=== PATIENT | female | born 1995 | race Caucasian/White ===

== ENCOUNTER 2020-11-06 17:30 | Outpatient (REF) | payer OTHER, SELFPAY ==
[2020-11-06 20:58] LABS: C Diff PCR Negative (Negative)
[2020-11-07 20:01] LABS: Campylobacter PCR Negative (Negative); Salmonella PCR Negative (Negative); Shiga Toxin PCR Negative (Negative); Shigella/Enteroinvasive Ecoli Negative (Negative)
== END 2020-11-06 17:31 | disposition home or self-care (01) ==
LOC: NCHCN 17:30
PROVIDERS: PCP Nurse Practitioner Primary Care; Visit Provider Family Medicine
DX: R19.7 Diarrhea, unspecified (principal)
CPT/HCPCS: 87329; 87493; 87505

== ENCOUNTER 2021-07-01 09:14 | Outpatient (CLI) | payer OTHER, SELFPAY ==
[2021-07-02 11:30] LABS: COVID-19 RT-PCR UVMMC Result Negative (Negative)
== END 2021-07-01 09:15 | disposition home or self-care (01) ==
PROVIDERS: PCP Nurse Practitioner Primary Care; Visit Provider Obstetrics & Gynecology
DX: Z20.822 Contact with and (suspected) exposure to COVID-19 (principal)
CPT/HCPCS: U0003

== ENCOUNTER 2021-07-24 01:36 | Outpatient (CLI) | payer OTHER, SELFPAY ==
[2021-07-24 14:37] LABS: Abs Immature Grans 0.03 10^3/uL (0.0-0.06); Absolute Basophil Count 0.03 10^3/uL (0.0-0.2); Absolute Eosinophil Count 0.06 10^3/uL (0.0-0.7); Absolute Lymphocyte Count 1.65 10^3/uL (1.2-3.4); Absolute Monocyte Count 0.51 10^3/uL (0.1-0.8); Absolute Neutrophil Count 7.02 10^3/uL (1.2-6.7); Basophils % 0.3; Eosinophils % 0.6; HCT 36.2 % (36.0-46.0); HGB 12.2 g/dL (11.2-15.7); Immature Grans % 0.3; Lymphocytes % 17.7; MCH 30.8 pg (27.0-33.0); MCHC 33.7 % (32.0-36.0); MCV 91.4 fL (80-95); MPV 8.7 fL (8.0-11.0); Monocytes % 5.5; Neutrophils % 75.6; Nucleated RBC 0 %; Platelet Count 295 10^3/uL (130-400); RBC 3.96 10^6/uL (3.93-5.22); RDW 11.7 % (11.7-14.6); RDW-SD 39.5 fL
[2021-07-24 15:49] LABS: *AMPHETAMINES SCREEN URINE Negative (Negative); *BARBITURATES SCREEN URINE Negative (Negative); *BENZODIAZEPINES SCREEN URINE Negative (Negative); Cannabinoids THC Negative (Negative); Cocaine Screen,Urine Negative (Negative); METHADONE URINE SCREEN Negative (Negative); OPIATES URINE SCREEN Negative (Negative)
[2021-07-24 16:02] LABS: Tricyclic Antidepressants Negative (Negative)
[2021-07-25 10:16] LABS: Hepatitis B Surface Ag Negative (Negative)
[2021-07-25 10:23] LABS: Rubella IgG Ab (UVM) Positive (See Note)
[2021-07-25 11:27] LABS: Varicella IgG Antibody Equivocal (See Note)
[2021-07-25 11:33] LABS: HIV-1/2 Ag & Ab Screen Negative (Negative)
[2021-07-25 12:04] LABS: Hepatitis C Ab w Rflx HCV PCR Negative (Negative)
[2021-07-25 20:29] LABS: Syphilis IgG w/Reflex Nonreactive (Nonreactive)
[2021-07-30 08:46] LABS: Buprenorphine Negative ng/mL (Cutoff: 5.0); Norbuprenorphine Negative ng/mL (Cutoff: 2.5)
[2021-08-13 08:54] LABS: Rabies Antibody Endpoint 0.6 IU/mL
== END 2021-07-24 01:37 | disposition home or self-care (01) ==
LOC: LBO 01:37
PROVIDERS: PCP Nurse Practitioner Primary Care; Visit Provider Advanced Practice Midwife
DX: Z34.91 Encounter for supervision of normal pregnancy, unspecified, first trimester (principal); Z20.3 Contact with and (suspected) exposure to rabies; Z32.01 Encounter for pregnancy test, result positive
CPT/HCPCS: 36415; 80307; 86317; 86787; 86803; 87340; 87389; 85025; 86762; 86780; 87086

== ENCOUNTER 2021-07-24 16:01 | Outpatient (REF) | payer OTHER, SELFPAY ==
--- NOTE | 2021-07-24 13:50 | PAPFT_PTH ---
PATIENT: Rizwana Sage LOC: [facility] U#:[id number] AGE/SX: 26/F ROOM: RE07/24/[address]: Jennifer Bar CNM : 1995 BED: DIS: 07/24/2021 SPEC #: [id number] RECD: 07/24/21 18:26 STATUS: CECILY REGinger #: [id number] ELOY: 07/24/21 13:[address]: Jennifer Bar DEPT: [facility] Cytology RECD BY: Maria L Evangelista ENTERED: 07/24/21 18:26 SP TYPE: PAPFT OTHR DR: MINOR AndradeP Tissues: 1 - CX/ENDOCX FOR PAP SMEARS Procedures: PAP THIN PREP/UVM Screening Comments: [id number]
[2021-07-26 14:51] LABS: Chlamydia Result Negative (Negative); GC Result Negative (Negative)
== END 2021-07-24 16:02 | disposition home or self-care (01) ==
LOC: LBN 16:01
PROVIDERS: PCP Nurse Practitioner Primary Care; Visit Provider Advanced Practice Midwife
DX: Z12.4 Encounter for screening for malignant neoplasm of cervix (principal); Z11.3 Encounter for screening for infections with a predominantly sexual mode of transmission
CPT/HCPCS: 87491; 87591; 88142

== ENCOUNTER 2021-09-27 02:27 | Outpatient (CLI) | payer OTHER, SELFPAY ==
[2021-09-27 11:41] LABS: HCT 33.6 % (36.0-46.0); HGB 11.1 g/dL (11.2-15.7); MCH 31.8 pg (27.0-33.0); MCV 96.3 fL (80-95); MPV 8.4 fL (8.0-11.0); Platelet Count 289 10^3/uL (130-400); RBC 3.49 10^6/uL (3.93-5.22); RDW 12.7 % (11.7-14.6); RDW-SD 44.5 fL; WBC 8.25 10^3/uL (4.4-10.8)
== END 2021-09-27 02:28 | disposition home or self-care (01) ==
LOC: LBO 02:27
PROVIDERS: PCP Nurse Practitioner Primary Care; Visit Provider Obstetrics & Gynecology Gynecology
DX: R23.8 Other skin changes (principal)
CPT/HCPCS: 36415; 85027

== ENCOUNTER 2021-10-10 19:17 | Outpatient (REF) | payer OTHER, SELFPAY | END 2021-10-10 19:18 | disposition home or self-care (01) | LOC: LBN 19:17 | PROVIDERS: PCP Nurse Practitioner Primary Care; Visit Provider Advanced Practice Midwife | DX: R30.0 Dysuria (principal) | CPT/HCPCS: 87086 ==

== ENCOUNTER 2021-11-22 01:46 | Outpatient (CLI) | payer OTHER, SELFPAY ==
[2021-11-22 11:03] LABS: Abs Immature Grans 0.06 10^3/uL (0.0-0.06); Absolute Basophil Count 0.02 10^3/uL (0.0-0.2); Absolute Eosinophil Count 0.07 10^3/uL (0.0-0.7); Absolute Lymphocyte Count 1.28 10^3/uL (1.2-3.4); Absolute Monocyte Count 0.66 10^3/uL (0.1-0.8); Absolute Neutrophil Count 6.73 10^3/uL (1.2-6.7); Basophils % 0.2; Eosinophils % 0.8; HCT 34.1 % (36.0-46.0); HGB 11.3 g/dL (11.2-15.7); Immature Grans % 0.7; Lymphocytes % 14.5; MCH 31.8 pg (27.0-33.0); MCHC 33.1 % (32.0-36.0); MCV 96 fL (80-95); MPV 8.5 fL (8.0-11.0); Monocytes % 7.5; Neutrophils % 76.3; Platelet Count 264 10^3/uL (130-400); RBC 3.55 10^6/uL (3.93-5.22); RDW 12.9 % (11.7-14.6); RDW-SD 45.1 fL; WBC 8.82 10^3/uL (4.4-10.8)
[2021-11-22 11:44] LABS: Glucose,1 Hr (Glucola) 91 mg/dL (80-140)
== END 2021-11-22 01:47 | disposition home or self-care (01) ==
LOC: LBO 01:46
PROVIDERS: PCP Nurse Practitioner Primary Care; Visit Provider Obstetrics & Gynecology
DX: Z34.92 Encounter for supervision of normal pregnancy, unspecified, second trimester (principal); Z3A.27 27 weeks gestation of pregnancy
CPT/HCPCS: 36415; 82950; 86850; 86900; 86901; 85025

== ENCOUNTER 2022-01-28 13:16 | Outpatient (REF) | payer OTHER, SELFPAY ==
[2022-01-28 14:00] LABS: *AMPHETAMINES SCREEN URINE Negative (Negative); *BARBITURATES SCREEN URINE Negative (Negative); *BENZODIAZEPINES SCREEN URINE Negative (Negative); Cannabinoids THC Negative (Negative); Cocaine Screen,Urine Negative (Negative); METHADONE URINE SCREEN Negative (Negative); OPIATES URINE SCREEN Negative (Negative); Tricyclic Antidepressants Negative (Negative)
[2022-02-01 10:56] LABS: Buprenorphine Negative ng/mL (Cutoff: 5.0); Norbuprenorphine Negative ng/mL (Cutoff: 2.5)
== END 2022-01-28 13:17 | disposition home or self-care (01) ==
LOC: LBN 13:16
PROVIDERS: PCP Nurse Practitioner Primary Care; Visit Provider Obstetrics & Gynecology
DX: Z34.93 Encounter for supervision of normal pregnancy, unspecified, third trimester (principal); Z36.85 Encounter for antenatal screening for Streptococcus B; Z3A.37 37 weeks gestation of pregnancy
CPT/HCPCS: 80307; 87081

== ENCOUNTER 2022-02-20 12:28 | Outpatient (CLI) | payer OTHER, SELFPAY ==
[2022-02-20 13:09] VITALS: BP 109/70; PULSE 86; TEMP 36.9
[2022-02-20 13:28] VITALS: BP 109/70; PULSE 86; TEMP 36.9
--- NOTE | 2022-02-20 15:38 | W.OBNST ---
Date of service: 02/20/22 Time of Service: 15:38 NST Evaluation Reason for NST Reasons for Nonstress Test: POSTDATES Gestational Age Gestational Age in Weeks and Days: 40 Weeks and 2Days Test and Monitor Explained Test/Monitor Explained: Test Explained, Monitor Explained and Patient Verbalized Understanding Vital Signs Blood Pressure: 109/70 Pulse: 86 Temperature: 98.4 F NST Information Date on Monitor: 02/20/22 Time on Monitor: 12:50 Date off Monitor: 02/20/22 Time off Monitor: 13:43 Total Time on Monitor: 53 NST Interventions: PO Hydration NST Evaluation Patient States Movement: Present FHR Baseline: 135 Variability: Moderate 6-25 bpm Accelerations: 15x15 and Prolonged Decelerations: None NST Results: Reactive Note NST Note Note: Reactive nonstress test, category 1 strip, occasional irregular contractions. Cervix 3 to 4 cm, 80%, posterior. All questions answered. NST Reviewed and Verified by: Tova Nogueira
[2022-02-20 15:39] VITALS: BP 109/70; PULSE 86; TEMP 36.9
== END 2022-02-20 13:50 | disposition home or self-care (01) ==
LOC: BCD 12:29 → OBS 12:43
PROVIDERS: PCP Nurse Practitioner Primary Care; Visit Provider Obstetrics & Gynecology
DX: O48.0 Post-term pregnancy (principal); Z3A.40 40 weeks gestation of pregnancy
CPT/HCPCS: 59025

== ENCOUNTER 2022-02-21 05:33 | Inpatient (IN) | payer OTHER, SELFPAY ==
[2022-02-21] VITALS (14 sets, daily range): BP systolic 104–115; BP diastolic 62–75; PULSE 83–107; RESP 16–18; TEMP 36.6–36.9; O2SAT 95
[2022-02-21] MEDS: miSOPROStol 200 MCG TAB 800 MCG PR (06:53)
[2022-02-21] MEDS: Acetaminophen 325 MG TAB (07:23)
[2022-02-21] MEDS: Ibuprofen 600 MG TAB (07:23)
--- NOTE | 2022-02-21 08:07 | HPE_ITS ---
Date of service: 02/21/22 Time of Service: 06:30 Assessment and Plan Assessment and plan (1) Normal labor: Status: Acute Assessment and plan: IV insertion and Abx administration Expect NVD OB-HPI Labor/Delivery History of Present Illness Reason for Visit: labor Chief Complaint: Uterine Contractions. KADY Calculator Estimated Delivery Date Method WG Current Estimate 02/18/22 LMP (Certain) Other Estimates 02/19/22 Ultrasound #1 Infant Delivery Date-Baby A 02/21/22 40w 3d Comments: By 2:45am she had been having contractions every 4-5min x1hr. She proceeded to the hospital and was found to be 4-5cm at 4:15 and tolerating the contractions fairly well. She used some nitrous oxide. By 5:15 she was very uncomfortable and found to be 6cm. No VB or LOF. Good FM History of Present Expected Delivery Route/Plan - elects FOB/ - David (first child) Specific Issues/Plan 1. Varicella immunity is equivocal, offer pt vaccine 2. Pt and FOB are COVID vaccinated and working toward booster 3. Declines genetic screening tests at initial OB 4. GBS+: ppx in labor PFSH All Active Problems (Updated 02/21/22 @ 08:13 by Shana Clark MD) Normal labor (Acute) Medical History (Updated 02/21/22 @ 08:13 by Shana Clark MD) Dysuria Easy bruisability Exposure to rabies Surgical History S/P ACL repair [place] teeth extracted 2014 Family History (Updated 07/24/21 @ 13:18 by Jennifer Bar CNM) Father Diabetes Paternal Grandfather Alcohol use disorder Diabetes type II Maternal Grandmother Cancer Maternal Grandfather Hypertension Social History Smoking/Tobacco Use Status: Never Smoking risk assessment performed?: Yes Alcohol Intake: never Drug use: Never Substance use type: does not use History History 1 Para 1 Hx # Term Pregnancies 1 Multiple births 0 Hx # Pregnancies 0 Ectopic pregnancies 0 AB induced 0 Hx Number of Living Children 1 AB spontaneous 0 Past Pregnancies Del. Date GA/Weeks # Preg Succ Route Wgt Sex Labor Lgth Anesth esia Location Prov Complic 02/21/22 40 No Yes vaginal Male 3-4hrs [facility] [place] Meds Allergies and Home Medications Allergies Allergy/AdvReac Type Severity Reaction Status Date / Time No Known Allergies Allergy Unverified 02/13/22 14:43 Home Medications Medication Instructions Recorded Confirmed Type prenat.vits,jef,dnk-mvkm-wvrgf 1 tab PO DAILY 07/12/21 02/20/22 History cranberry 500 mg capsule 500 mg PO BID 11/01/21 02/20/22 History ondansetron HCl 4 mg tablet 4 mg PO Q6H PRN nausea and 11/15/21 02/20/22 Rx vomiting #10 tabs guar gum 1 gram tablet g PO 12/19/21 02/20/22 History Exam Physical Exam Vital signs: Temp Pulse Resp BP 98 F 102 H 18 104/62 02/21/22 04:24 02/21/22 07:54 02/21/22 04:24 02/21/22 07:54 Vital Signs Reviewed: Yes Detailed Labor and Delivery Exam Dilation: 9.5 Effacement (%): 100 station: +2 Zamora Score: Cervical Points Exam 0 1 2 3 Dilation Closed 1-2cm 3-4 cm 5-6cm Effacement 0-30% 40-50% 60-70% 80% Consistency Firm Medium Soft Station -3 -2 -1,0 +1,+2 Position Posterior Mid Anterior Amniotic Membrane Status: Ruptured Rupture Method: Artifical (with exam @6:10 - accidental) Amniotic Fluid: Clear Fetus A Heart Rate Baseline: 140 Monitor Accelerations: 15 X 15 Monitor Decelerations: None Variability: Moderate (6-25 BPM) Presentation: Cephalic Categories: Category I Date of Membrane Rupture: 02/21/22 Time of Membrane Rupture: 06:10 Detailed HEENT Exam Head: Present normocephalic and atraumatic Detailed Neurological Exam Neurological: Present alert, oriented X3 and CN II-XII intact DetailedPsychiatric Exam Psychiatric: Present normal affect, normal thought process and cooperative Results Results Group Beta Strep: Positive Blood Type: AB+ Rubella Status: Immune Varicella Immunity: Equivocal Risk Assessment Risk for Shoulder Dystocia Historical/Initial OB: NEGATIVE FOR: Pelvic Abnormality, Pre- BMI>30, Previous Shoulder Dystocia or Previous Macrosomia Date/Initial: 07/24/21: KH Risk for Pre-Eclampsia Yes, if one or more: NEGATIVE FOR: Hx Pre-E/Gest HTN, Chronic HTN, Multiple Gestation, Pre-gestational DM, Renal Disease, Systemic Lupus or APA Syndrome Yes, if 2 or more: POSITIVE FOR: Nulliparity; NEGATIVE FOR: Age>= 35 yrs, >10yr btwn pregnancies, BMI>30, ethinicty, Mother/Sister w/ Pre-E or Previous IUGR Risk for Post- Hemorrhage Initial: NEGATIVE FOR: Multiple Gestation, Previous PPH, Known Clotting Deficiency, Grand Multiparity or Anticoagulation Risks Reviewed Risks Reviewed Upon Admission: Yes
--- NOTE | 2022-02-21 08:19 | W.OBDELIVERY ---
Date of service: 02/21/22 Time of Service: 06:45 OB Labor/ Delivery Information Baby A Delivery Delivery Method: Spontaneaous Presentation: Cephalic Cephalic Position: Vertex Vertex Position: Right Occipital Anterior Cord Description-Baby A: 3 Vessels Amniotic Fluid: Clear Estimated Blood Loss: 600ml Providers Doctor: Shana Clark Nurse: Martine Stokes Nurse: Catie Mosquera Labor/Delivery Information Number of Babies in Womb: 1 Steroids Given: None Reason Steroids Not Administered: N/A Group Beta Strep: Positive Antibiotics Administered: No Number of Doses of Antibiotics: 1 Rubella Status: Immune Blood Type: AB+ Varicella Immunity: Equivocal Medication in Delivery: nitrous Maternal Complications: Precipitous Labor(<3hrs) Shoulder Dystocia: No Stages of Labor Onset of Labor Date: 02/21/22 Onset of Labor Time: 03:30 Complete Dilatation Date: 02/21/22 Complete Dilatation Time: 06:00 Labor - Stage 1 Duration: 0 minutes ROM Baby A: 02/21/22 ROM Baby A: 06:10 ROM Total Time- Baby A: [id number] Delivery Date-Baby A: 02/21/22 Infant Delivery Time-Baby A: 06:44 Labor Stage 2 Duration: 44 minutes Placenta Delivery Date-Baby A: 02/21/22 Placenta Delivery Time-Baby A: 06:55 Labor-Stage 3 Duration: 11 minutes Total Length of Labor-Baby A: 3 hours and 14 minutes Placenta Cultured: No Placenta Status: Delivered Baby A Gender: Male Gestational Status: Term (39-41.6 wks) Gestational Age in Weeks/Days: 40 Weeks and 3 Days weight: 8 lb 8 oz Score-1 Minute Interval(Baby A) Heart Rate-1 minute: 100 BPM or Greater Respiratory Effort- 1 minute: Spontaneous/Strong Cry Muscle Tone-1 minute: Active Movement Reflex Response-1 minute: Minimal Response Color-1 minute: Bluish Hands or Feet Total Score-1 minute: 8 Score-5 Minute Interval(Baby A) Heart Rate- 5 minute: 100 BPM or Greater Respiratory Effort-5 minute: Spontaneous/Strong Cry Muscle Tone-5 minute: Active Movement Reflex Response-5 minute: Prompt Response Color-5 minute: Bluish Hands or Feet Total Score- 5 minute: 9 Note: The pt was found to be fully dilated. She pushed 45 mins to deliver the 's head in JEMMA position followed by the shoulders and the rest of the body. The baby was placed on mom's abdomen. After >1min the cord was clamped x2 and cut. Cord blood collected. The placenta delivered with gentle cord traction and fundal massage and appeared intact. She had initial moderate bleeding and was given pitocin IM and 800mcg of cytotec RI. After bimanual massage and evacuation of clots in the lower uterine segment the bleeding subsided and the fundus was firm. After infiltration with lidocaine, a small vaginal laceration was repaired with 3-0 vicryl in a [id number] suture and a right periurethral was repaired with 3-0 vicryl in a running fashion. No further excess bleeding. Mom and baby stable at time of note.
--- NOTE | 2022-02-21 09:28 | NUR.NOTE ---
Pt had reported feeling slightly light headed while in shower ~0845. Assisted back to bed and bleeding/VS assessed. Fundus firm, midline, U-1. Moderate bleeding. VSS. Upon recheck ~0915 pt feels improvement, fundal check same as prior. Will continue to monitor. Nursing Note:
[2022-02-21 10:02] LABS: Source Nasal/Nares
[2022-02-21 10:35] LABS: COVID-19 PCR Negative (Negative)
[2022-02-21] MEDS: Ibuprofen 600 MG TAB PO ×2 (12:57→20:02)
[2022-02-21] MEDS: Acetaminophen 325 MG TAB 650 MG PO ×2 (12:57→20:03)
[2022-02-22] MEDS: Acetaminophen 325 MG TAB 650 MG PO ×4 (05:08→20:28)
[2022-02-22] MEDS: Ibuprofen 600 MG TAB PO ×2 (05:10→20:27)
[2022-02-22 07:22] LABS: HCT 29.1 % (36.0-46.0); HGB 9.4 g/dL (11.2-15.7); MCH 30.1 pg (27.0-33.0); MCHC 32.3 % (32.0-36.0); MCV 93 fL (80-95); MPV 9.1 fL (8.0-11.0); Platelet Count 269 10^3/uL (130-400); RBC 3.12 10^6/uL (3.93-5.22); RDW 13.5 % (11.7-14.6); RDW-SD 45.4 fL; WBC 14.19 10^3/uL (4.4-10.8)
[2022-02-22 09:05] VITALS: BP 105/73; PULSE 103; RESP 16; TEMP 36.6; O2SAT 98
--- NOTE | 2022-02-22 10:30 | W.PM.OBPNV1 ---
Date of service: 02/22/22 Time of Service: 10:00 Assessment and Plan Assessment and plan (1) Routine follow-up: Status: Acute Assessment and plan: Routine care. Circ today. D/C tomorrow after 48hr observation for baby. Subjective Subjective Interval history: Pt is doing well post-. Baby is feeding well. She has mild nipple soreness. Moderate lochia. Shellie PO without n/v. No BM yet but +flatus. Exam Physical Exam Vital signs: Temp Pulse Resp BP Pulse Ox 97.9 F 103 H 16 105/73 98 02/22/22 09:05 02/22/22 09:05 02/22/22 09:05 02/22/22 09:05 02/22/22 09:05 Vital Signs Reviewed: Yes Constitutional Constitutional: no acute distress and cooperative Detailed HEENT Exam Head: Present normocephalic and atraumatic Respiratory Exam Respiratory Exam: Normal Abdominal Exam Abdomen: Tender (mildly) Fundal Exam Fundus: Below Umbilicus and Firm Extremities Exam Extremity Exam: negative Calf Tenderness or Edema Detailed Neurological Exam Neurological: Present alert, oriented X3 and CN II-XII intact Results Hemoglobin/Hematocrit: Hgb 9.4 g/dL (11.2-15.7) L 02/22/22 07:10 Hct 29.1 % (36.0-46.0) L 02/22/22 07:10 Abnormal Lab Findings: Abnormal Labs 02/22/22 07:10 WBC 14.19 H RBC 3.12 L Hgb 9.4 L Hct 29.1 L
--- NOTE | 2022-02-22 10:45 | W.PM.OBDISCH ---
Date of service: 02/23/22 Time of Service: 10:28 DS: Diagnosis Discharge Diagnosis (1) Routine follow-up: Status: Acute Asessment and Plan: Discharge home Discharge Plan Disposition Patient Disposition: HOME Condition: Good Discharge Details Reason For Visit: Labor Admit Date/Time: 02/21/22 05:33 Admit Provider: Shana Clark Attending Provider: Shana Clark Primary Care Provider: Amee Guardado Hospital Course Hospital Course: Pt arrived in active labor and quickly progressed to fully dilated and pushing. She was GBS positive but due to rapid progression of labor and difficulty starting an IV she did not receive abx prophylaxis. She underwent an uncomplicated vaginal delivery. She had a routine pp course. She was observed for 48hrs and then discharged home. Home Meds and New Rx's Prescriptions: New acetaminophen 325 mg Tablet 650 mg PO Q4H PRN PRNQty: 0 0RF dibucaine 1 % Ointment 1 applic topical TID PRN PRNQty: 0 0RF ibuprofen 600 mg Tablet 600 mg PO Q6H PRN PRNQty: 60 0RF Medi-Pads 50 % Pads, Medicated 1 pad NC PRN PRN (Reason: Discomfort) Qty: 0 0RF Continued cranberry 500 mg capsule 500 mg PO BID Rx Instructions: administer with meals prenat.vits,jef,[id number]-jswnp Tablet 1 tab PO DAILY guar gum 1 gram tablet PO ondansetron HCl 4 mg tablet 4 mg PO Q6H PRN (Reason: nausea and vomiting) Qty: 10 0RF Discharge Instructions Activity:: Activity as Tolerated Equipment/Supplies:: No Equipment Needed Diet:: As Tolerated OB:DS Summary Summary Vaginal Delivery Method: Spontaneaous Episiotomy Description: None Laceration Extension: First Degree Contraception Discussed Contraception Discussed: Yes Contraceptive Plan: Foam/Condoms, Infant Gender-Baby A: Male weight: 8 lb 8 oz Status at Discharge Functional status at discharge: independent ambulation Overall status at discharge: patient is back to baseline Mental Status: mental status grossly normal Speech and Movement: speech and movement normal Mood: congruent mood Affect: normal affect Exam Physical Exam Vital signs: Temp Pulse Resp BP Pulse Ox 97.9 F 103 H 16 105/73 98 02/22/22 09:05 02/22/22 09:05 02/22/22 09:05 02/22/22 09:05 02/22/22 09:05 PFSH All Active Problems (Updated 02/22/22 @ 10:41 by Shana Clark MD) Routine follow-up (Acute) Medical History (Updated 02/22/22 @ 10:41 by Shana Clark MD) Dysuria Easy bruisability Exposure to rabies Normal labor Surgical History S/P ACL repair [place] teeth extracted 2014 Family History (Updated 07/24/21 @ 13:18 by Jennifer Bar CNM) Father Diabetes Paternal Grandfather Alcohol use disorder Diabetes type II Maternal Grandmother Cancer Maternal Grandfather Hypertension Social History Smoking/Tobacco Use Status: Never Smoking risk assessment performed?: Yes Alcohol Intake: never Drug use: Never Substance use type: does not use History History 1 Para 1 Hx # Term Pregnancies 1 Multiple births 0 Hx # Pregnancies 0 Ectopic pregnancies 0 AB induced 0 Hx Number of Living Children 1 AB spontaneous 0 Past Pregnancies Del. Date GA/Weeks # Preg Succ Route Wgt Sex Labor Lgth Anesthesia Location Prov Complic 02/21/22 40 No Yes vaginal Male 3-4hrs [facility] Delivery Date: 02/21/22 Last Updated by: MD Ildefonso Gonzalez DS: Data Vitals/I&O Vitals and I&O: Vital Signs Temperature 97.9 F 02/22/22 09:05 Pulse 103 H 02/22/22 09:05 Pulse Rhythm Regular 02/22/22 09:48 Respiratory Rate 16 02/22/22 09:05 Blood Pressure 105/73 02/22/22 09:05 Blood Pressure Mean 83 02/22/22 09:05 Pulse Oximetry 98 02/22/22 09:05 Oxygen Delivery Method Room Air 02/21/22 04:24 Oxygen Flow Rate 0 02/21/22 04:24 Pain Level 4 02/22/22 09:17 Comment 02/21/22 09:00 Intake & Output 02/21/22 02/21/22 02/22/22 11:59 23:59 11:59 Output Total 810 / 810 Balance -810 / -810 Weight 205 lb Output: Blood 810 / 810 Other: Urine Color Yellow Data Completed and Pending Labs on day of discharge: Labs from last 24 hours 02/22/22 02/21/22 02/21/22 07:10 05:33 05:33 WBC 14.19 H Cancelled RBC 3.12 L Cancelled Hgb 9.4 L Cancelled Hct 29.1 L Cancelled MCV 93 Cancelled MCH 30.1 Cancelled MCHC 32.3 Cancelled RDW 13.5 Cancelled Plt Count 269 Cancelled MPV 9.1 Cancelled Patient ABO/Rh Cancelled
[2022-02-22] MEDS: Docusate Sodium 100 MG CAP PO (14:51)
[2022-02-22 16:05] VITALS: BP 114/71; PULSE 80; RESP 16; TEMP 36.6; O2SAT 98
[2022-02-22 20:30] VITALS: BP 108/74; PULSE 91; RESP 17; TEMP 36.5; O2SAT 96
[2022-02-23] MEDS: Acetaminophen 325 MG TAB 650 MG PO (05:15)
[2022-02-23] MEDS: Ibuprofen 600 MG TAB PO (05:15)
[2022-02-23] MEDS: Varicella Virus Vaccine (Live) 0.5 ML SC (09:01)
[2022-02-23 10:31] VITALS: BP 110/70; PULSE 90; RESP 16; TEMP 36.6; O2SAT 98
--- NOTE | 2022-02-23 10:31 | OBPPV_ITS ---
Date of service: 02/23/22 Time of Service: 10:32 Assessment and Plan Assessment and plan (1) Routine follow-up: Status: Acute Assessment and plan: D/c home. F/u in 2wks. Subjective Subjective Interval history: Pt is doing well today and looking forward to discharge. baby status: Doing well, Rooming in and Strong Bonding Observed [place] feeding status: Exclusively breast feeding Exam Physical Exam Vital signs: Temp Pulse Resp BP Pulse Ox 97.7 F 91 H 17 108/74 96 02/22/22 20:30 02/22/22 20:30 02/22/22 20:30 02/22/22 20:30 02/22/22 20:30 Vital Signs Reviewed: Yes Constitutional Constitutional: no acute distress and cooperative Detailed HEENT Exam Head: Present normocephalic and atraumatic Respiratory Exam Respiratory Exam: Normal Abdominal Exam Abdomen: Tender (mildly) Fundal Exam Fundus: Below Umbilicus and Firm Extremities Exam Extremity Exam: negative Calf Tenderness or Edema Detailed Neurological Exam Neurological: Present alert, oriented X3 and CN II-XII intact Results Hemoglobin/Hematocrit: Hgb 9.4 g/dL (11.2-15.7) L 02/22/22 07:10 Hct 29.1 % (36.0-46.0) L 02/22/22 07:10 Abnormal Lab Findings: Abnormal Labs 02/22/22 07:10 WBC 14.19 H RBC 3.12 L Hgb 9.4 L Hct 29.1 L
== END 2022-02-23 11:30 | disposition home or self-care (01) | DRG 807 ==
PROVIDERS: Admitting Provider Obstetrics & Gynecology; PCP Nurse Practitioner Primary Care; Visit Provider Obstetrics & Gynecology
DX: O99.824 Streptococcus B carrier state complicating childbirth (principal); Z37.0 Single live birth; Z3A.40 40 weeks gestation of pregnancy; O71.82 Other specified trauma to perineum and vulva; O70.0 First degree perineal laceration during delivery
CPT/HCPCS: 36415; 85027; 86900; 86901; 87635; G0378

== ENCOUNTER 2023-03-02 04:33 | Outpatient (CLI) | payer OTHER, SELFPAY ==
[2023-03-02 14:56] LABS: Abs Immature Grans 0.02 10^3/uL (0.0-0.06); Absolute Basophil Count 0.02 10^3/uL (0.0-0.2); Absolute Eosinophil Count 0.09 10^3/uL (0.0-0.7); Absolute Lymphocyte Count 1.64 10^3/uL (1.2-3.4); Absolute Monocyte Count 0.41 10^3/uL (0.1-0.8); Absolute Neutrophil Count 6.29 10^3/uL (1.2-6.7); Basophils % 0.2; Eosinophils % 1.1; HCT 36.2 % (36.0-46.0); HGB 12.6 g/dL (11.2-15.7); Immature Grans % 0.2; Lymphocytes % 19.4; MCH 32.1 pg (27.0-33.0); MCHC 34.8 % (32.0-36.0); MCV 92 fL (80-95); MPV 9.2 fL (8.0-11.0); Monocytes % 4.8; Neutrophils % 74.3; Platelet Count 271 10^3/uL (130-400); RBC 3.93 10^6/uL (3.93-5.22); RDW 11.9 % (11.7-14.6); RDW-SD 40.2 fL; WBC 8.47 10^3/uL (4.4-10.8)
[2023-03-02 18:10] LABS: *AMPHETAMINES SCREEN URINE Negative (Negative); *BARBITURATES SCREEN URINE Negative (Negative); *BENZODIAZEPINES SCREEN URINE Negative (Negative); Cannabinoids THC Negative (Negative); Cocaine Screen,Urine Negative (Negative); METHADONE URINE SCREEN Negative (Negative); OPIATES URINE SCREEN Negative (Negative)
[2023-03-02 18:12] LABS: Tricyclic Antidepressants Negative (Negative)
[2023-03-03 09:25] LABS: Hepatitis B Surface Ag Negative (Negative)
[2023-03-03 10:28] LABS: Varicella IgG Antibody Positive (See Note)
[2023-03-03 10:32] LABS: Hepatitis C Ab w Rflx HCV PCR Negative (Negative); Rubella IgG Ab (UVM) Positive (See Note)
[2023-03-03 10:38] LABS: HIV-1/2 Ag & Ab Screen Negative (Negative)
[2023-03-04 15:54] LABS: Chlamydia Result Negative (Negative); GC Result Negative (Negative)
[2023-03-04 18:57] LABS: Syphilis IgG w/Reflex Nonreactive (Nonreactive)
[2023-03-08 01:58] LABS: Buprenorphine Negative ng/mL (Cutoff: 5.0); Norbuprenorphine Negative ng/mL (Cutoff: 2.5)
[2023-03-16 15:10] LABS: Rabies Antibody Endpoint 0.6 IU/mL
== END 2023-03-02 04:34 | disposition home or self-care (01) ==
LOC: LBO 04:33
PROVIDERS: Advanced Practice Midwife; PCP Nurse Practitioner Family; Visit Provider Advanced Practice Midwife
DX: Z34.01 Encounter for supervision of normal first pregnancy, first trimester (principal)
CPT/HCPCS: 36415; 80307; 80348; 86317; 86787; 86803; 86850; 86900; 86901; 87340; 87389; 87491; 87591; 85025; 86762; 86780; 87086

== ENCOUNTER 2023-06-29 05:16 | Outpatient (CLI) | payer BC, SELFPAY ==
[2023-06-29 13:48] LABS: HCT 34.6 % (36.0-46.0); HGB 11.6 g/dL (11.2-15.7); MCH 31.8 pg (27.0-33.0); MCHC 33.5 % (32.0-36.0); MCV 95 fL (80-95); MPV 8.6 fL (8.0-11.0); Platelet Count 264 10^3/uL (130-400); RBC 3.65 10^6/uL (3.93-5.22); RDW 12.9 % (11.7-14.6); RDW-SD 44.9 fL; WBC 8.02 10^3/uL (4.4-10.8)
[2023-06-29 14:04] LABS: Glucose,1 Hr (Glucola) 106 mg/dL (80-140)
== END 2023-06-29 05:17 | disposition home or self-care (01) ==
LOC: LBO 05:17
PROVIDERS: Obstetrics & Gynecology Gynecology; PCP Nurse Practitioner Family; Visit Provider Obstetrics & Gynecology
DX: Z34.93 Encounter for supervision of normal pregnancy, unspecified, third trimester (principal)
CPT/HCPCS: 36415; 82950; 85027

== ENCOUNTER 2023-08-25 10:54 | Outpatient (REF) | payer BC, SELFPAY | END 2023-08-25 10:55 | disposition home or self-care (01) | LOC: LBN 10:54 | PROVIDERS: PCP Nurse Practitioner Family; Visit Provider Obstetrics & Gynecology | DX: Z34.93 Encounter for supervision of normal pregnancy, unspecified, third trimester (principal); Z3A.36 36 weeks gestation of pregnancy; Z36.85 Encounter for antenatal screening for Streptococcus B | CPT/HCPCS: 87081 ==

== ENCOUNTER 2023-09-14 07:03 | Inpatient (IN) | payer BC, SELFPAY ==
[2023-09-14] VITALS (35 sets, daily range): BP systolic 104–118; BP diastolic 56–75; PULSE 76–110; RESP 15–18; TEMP 36.3–36.7; O2SAT 98
--- NOTE | 2023-09-14 08:07 | HPE_ITS ---
Date of service: 09/14/23 Time of Service: 08:07 Assessment and Plan Assessment and plan (1) : Status: Chronic Assessment and plan: Term at 39 weeks and 4 days. History of rapid labor. Group B strep positive. Elective induction of labor for the above. Risk benefits and alternatives all discussed. Antibiotic prophylaxis will ensue at onset of cervical ripening. Pacheco score is 6. Will receive Vasoprost intravaginally and subsequent Pitocin augmentation. All questions answered. (2) Group B Streptococcus carrier, +RV culture, currently : Status: Acute OB-HPI Labor/Delivery History of Present Illness Reason for Visit: IOL Chief Complaint: Scheduled Induction of Labor (GBS positive, history of rapid labor) Indication for Induction: Other (GBS positive, history of rapid labor). KADY Calculator Estimated Delivery Date Method Current WG Current Estimate 09/17/23 LMP (Certain) 39w 4d Other Estimates 09/17/23 Ultrasound #1 39w 4d History of Present Expected Delivery Route/Plan - MD FOB/ - [place] Son (2nd child together) Specific Issues/Plan 1. Close pregnancies, conceived 10 months 2. H/o fairly precipitous delivery, total labor length 3-4hrs Declines genetic screening and Quad screen Assessment: History Reviewed & Current Informed Consent Informed Consent: Induction of Labor Review of Systems All systems reviewed & are unremarkable except as noted in HPI and below Eyes Eyes: Reports system reviewed and no additional complaints, except as documented ENT Ears, Nose, Mouth, and Throat: Reports system reviewed and no additional complaints, except as documented Cardiovascular Cardiovascular: Reports system reviewed and no additional complaints, except as documented and Denies chest pain Respiratory Respiratory: Reports system reviewed and no additional complaints, except as documented Genitourinary Genitourinary: Reports system reviewed and no additional complaints, except as documented Musculoskeletal Musculoskeletal: Reports system reviewed and no additional complaints, except as documented Neurologic Neurologic: Reports system reviewed and no additional complaints, except as documented Psychiatric Psychiatric: Reports system reviewed and no additional complaints, except as documented PFSH All Active Problems (Updated 08/31/23 @ 15:03 by Tova Nogueira DO) Group B Streptococcus carrier, +RV culture, currently (Acute) (Chronic) Medical History Migraine headache with aura Surgical History History of repair of anterior cruciate ligament of left knee (~2014) meniscus repair Family History Mother No problems noted. Father Diabetes Resolved after weight loss Brother No problems noted. Maternal Grandfather Hypertension Maternal Grandmother , 74 from pancreatic cancer Pancreatic cancer Paternal Grandfather Diabetes Alcohol use disorder Paternal Grandmother Dementia Son No problems noted. 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 [employer] Pets and animals: Yes Pets and animals: dog(s) Sexually active: Yes Do you think of yourself as: straight/heterosexual Current gender identity: female What is your relationship status?: How often do you talk on the phone with friends or family?: three or more times per week How often do you get together with friends or relatives?: once per week How often do you attend tenriism or tenriism services?: 1-3 times per year Do you belong to any clubs or organized social groups?: no Panel score (0-1 are the most socially isolated patients): 2 What type of physical activity do you participate in: walking Duration: 30-45 minutes/day Frequency: 1-2 times per week Litzy/Hoahaoism: Christian Special litzy needs: No Agree to transfusion: Yes Seatbelt use: always Helmet use: Yes Helmet use: always Drive intox or ride w/intox school bus driver/mechanic: No Working smoke detector in home: Yes Carbon monox detector in home: Yes Firearms in home: No Do you feel safe at home: Yes Do you feel safe in your relationship?: Yes Victim of physical abuse: No Victim of emotional abuse: No Victim of sexual abuse: No Would you like helpful sources: No History History 2 Para 1 Hx # Term Pregnancies 1 Multiple births 0 Hx # Pregnancies 0 Ectopic pregnancies 0 AB induced 0 Hx Number of Living Children 1 AB spontaneous 0 Past Pregnancies Del. Date GA/Weeks # Preg Succ Route Wgt Sex Labor Lgth Anesth esia Location Prov Complic 02/21/22 40 No Yes vaginal 8 lb 8 oz Male 3-4hrs [facility] - [facility] Delivery Date: 02/21/22 Last Updated by: Shana Clark MD [place] -precipitous delivery Meds Allergies and Home Medications Allergies Allergy/AdvReac Type Severity Reaction Status Date / Time No Known Allergies Allergy Verified 09/07/23 08:35 Home Medications Medication Instructions Recorded Confirmed Type prenat.vits,jef,zkm-tquy-sjivx 1 tab PO DAILY 07/12/21 09/14/23 History albuterol 90 mcg-budesonide 80 2 inh inhalation ONCE 08/17/23 09/14/23 History mcg/actuation HFA aerosol inhaler Exam Physical Exam Vital signs: Temp Pulse Resp BP Pulse Ox 97.3 F L 100 H 18 109/74 98 09/14/23 07:27 09/14/23 07:27 09/14/23 07:27 09/14/23 07:27 09/14/23 07:27 Vital Signs Reviewed: Yes Notable Details: None Constitutional Constitutional: no acute distress Detailed Labor and Delivery Exam Dilation: 2 Effacement (%): 50 station: -2 Cervix position: mid Consistency: soft Pacheco Score: Cervical Points Exam 0 1 2 3 Dilation Closed 1-2cm 3-4 cm 5-6cm Effacement 0-30% 40-50% 60-70% 80% Consistency Firm Medium Soft Station -3 -2 -1,0 +1,+2 Position Posterior Mid Anterior PACHECO Score(Cervical Ripeness Score): 6 Amniotic Membrane Status: Intact Contraction Frequency(min): irregular Contraction Duration(sec): 30 Fetus A Heart Rate Baseline: 140 Monitor Accelerations: Present Monitor Decelerations: None Variability: Moderate (6-25 BPM) Presentation: Vertex Est. Weight: 7 lb HEENT Exam HEENT Exam: Normal Neck Exam Neck Exam: Normal Respiratory Exam Respiratory Exam: Normal Cardiovascular Exam Cardiovascular Exam: Normal Abdominal Exam Abdominal Exam: Normal Extremities Exam Extremities Exam: Normal Back/Spine/Pelvis Exam Pelvis Adequate: Yes Neurological Exam Neurological Exam: Normal Psychiatric Exam Psychiatric Exam: Normal Results Results Group Beta Strep: Positive Blood Type: AB+ Rubella Status: Immune Varicella Immunity: Immune Risk Assessment Risk for Shoulder Dystocia Historical/Initial OB: NEGATIVE FOR: Pelvic Abnormality, Pre- BMI>30, Previous Shoulder Dystocia or Previous Macrosomia Increased Risk?: No Delivery Plan @ 40 wks: Vaginal delivery Risk for Pre-Eclampsia Daily Dose ASA Indicated: No Date Initiated/Initials: not indicated, jk Yes, if one or more: NEGATIVE FOR: Hx Pre-E/Gest HTN, Chronic HTN, Multiple Gestation, Pre-gestational DM, Renal Disease, Systemic Lupus or APA Syndrome Yes, if 2 or more: NEGATIVE FOR: Nulliparity, Age>= 35 yrs, >10yr btwn pregnancies, BMI>30, ethinicty, Mother/Sister w/ Pre-E or Previous IUGR Risk for Post- Hemorrhage Initial: NEGATIVE FOR: Multiple Gestation, Previous PPH, Known Clotting Deficiency, Grand Multiparity or Anticoagulation At Risk?: No Counseled re: Active Management: Yes Date/Initials: Risks Reviewed Risks Reviewed Upon Admission: Yes
[2023-09-14 08:13] LABS: HGB 11.5 g/dL (11.2-15.7); MCH 31.9 pg (27.0-33.0); MCHC 32.9 % (32.0-36.0); MCV 97 fL (80-95); MPV 9.2 fL (8.0-11.0); Platelet Count 242 10^3/uL (130-400); RBC 3.61 10^6/uL (3.93-5.22); RDW 13.3 % (11.7-14.6); RDW-SD 47.4 fL; WBC 7.34 10^3/uL (4.4-10.8)
[2023-09-14] MEDS: Lactated Ringers 1,000 ML 200 ML IV (08:53)
[2023-09-14] MEDS: miSOPROStol 25 MCG TAB VG (08:53)
[2023-09-14] MEDS: Normal Saline Flush 10 ML SYR IVP ×2 (08:54→13:22)
[2023-09-14] MEDS: Penicillin G POT. 5,000,000 UNITS in Normal Saline 100 ML 200 UNITS IVPB (08:55)
--- NOTE | 2023-09-14 08:56 | W.PM.OBNL1 ---
Date of service: 09/14/23 Time of Service: 08:57 Informed Consent Informed Consent: Induction of Labor Assessment and Plan Assessment and plan (1) : Status: Chronic Assessment and plan: Labor induction at term. Misoprostol for cervical ripening, followed by Pitocin augmentation as necessary. All questions answered (2) Group B Streptococcus carrier, +RV culture, currently : Status: Acute Objective Abnormal lab results 09/14/23 Range/Units 08:02 RBC 3.61 L (3.93-5.22) 10^6/uL Hct 35.0 L (36.0-46.0) % MCV 97 H (80-95) fL Temp Pulse Resp BP Pulse Ox 97.3 F L 100 H 18 109/74 98 09/14/23 07:27 09/14/23 07:27 09/14/23 07:27 09/14/23 07:27 09/14/23 07:27 Laboratory Results WBC 7.34 10^3/uL (4.4-10.8) 09/14/23 08:02 RBC 3.61 10^6/uL (3.93-5.22) L 09/14/23 08:02 Hgb 11.5 g/dL (11.2-15.7) 09/14/23 08:02 Hct 35.0 % (36.0-46.0) L 09/14/23 08:02 MCV 97 fL (80-95) H 09/14/23 08:02 MCH 31.9 pg (27.0-33.0) 09/14/23 08:02 MCHC 32.9 % (32.0-36.0) 09/14/23 08:02 RDW 13.3 % (11.7-14.6) 09/14/23 08:02 Plt Count 242 10^3/uL (130-400) 09/14/23 08:02 MPV 9.2 fL (8.0-11.0) 09/14/23 08:02 Results Hemoglobin/Hematocrit: Hgb 11.5 g/dL (11.2-15.7) 09/14/23 08:02 Hct 35.0 % (36.0-46.0) L 09/14/23 08:02 Abnormal Lab Findings: Abnormal Labs 09/14/23 08:02 RBC 3.61 L Hct 35.0 L MCV 97 H
[2023-09-14] MEDS: Penicillin G POT. 3,000,000 UNITS in Normal Saline 50 ML 100 UNITS IVPB ×2 (13:22→17:16)
--- NOTE | 2023-09-14 13:24 | PGE_ITS ---
Date of service: 09/14/23 Time of Service: 13:24 Informed Consent Informed Consent: Induction of Labor Pelvic Exam Dilation: 4 Effacement (%): 50 station: -2 Cervix Position: mid Consistency: soft Contractions Contraction Frequency(min): Irregular Contraction Duration(sec): 60 seconds Fetus A Heart Rate Baseline: 130 Presentation: Cephalic Variability: Moderate (6-25 BPM) Assessment and Plan Assessment and plan (1) : Status: Chronic Assessment and plan: Term with history of rapid labor. Group B strep positive. Receiving second dose of penicillin. Will begin augmentation. Artificial rupture me mbranes if necessary. All of the labor process discussed with patient and her . All questions answered (2) Group B Streptococcus carrier, +RV culture, currently : Status: Acute Objective Abnormal lab results 09/14/23 Range/Units 08:02 RBC 3.61 L (3.93-5.22) 10^6/uL Hct 35.0 L (36.0-46.0) % MCV 97 H (80-95) fL Temp Pulse Resp BP Pulse Ox 97.3 F L 88 18 107/71 98 09/14/23 07:27 09/14/23 11:01 09/14/23 07:27 09/14/23 09:54 09/14/23 07:27 Laboratory Results WBC 7.34 10^3/uL (4.4-10.8) 09/14/23 08:02 RBC 3.61 10^6/uL (3.93-5.22) L 09/14/23 08:02 Hgb 11.5 g/dL (11.2-15.7) 09/14/23 08:02 Hct 35.0 % (36.0-46.0) L 09/14/23 08:02 MCV 97 fL (80-95) H 09/14/23 08:02 MCH 31.9 pg (27.0-33.0) 09/14/23 08:02 MCHC 32.9 % (32.0-36.0) 09/14/23 08:02 RDW 13.3 % (11.7-14.6) 09/14/23 08:02 Plt Count 242 10^3/uL (130-400) 09/14/23 08:02 MPV 9.2 fL (8.0-11.0) 09/14/23 08:02 Patient ABO/Rh AB Positive 09/14/23 08:02 Antibody Screen NEGATIVE 09/14/23 08:02 Subjective Interval history since last seen: Patient seen and examined after 1 dose of misoprostol. She is feeling some uterine activity and some lower pelvic pressure. Baby's been moving and active. Vital signs are stable. Results Hemoglobin/Hematocrit: Hgb 11.5 g/dL (11.2-15.7) 09/14/23 08:02 Hct 35.0 % (36.0-46.0) L 09/14/23 08:02 Abnormal Lab Findings: Abnormal Labs 09/14/23 08:02 RBC 3.61 L Hct 35.0 L MCV 97 H
--- NOTE | 2023-09-14 16:40 | W.PM.OBNL1 ---
Date of service: 09/14/23 Time of Service: 16:44 Informed Consent Informed Consent: Induction of Labor Pelvic Exam Dilation: 6 Effacement (%): 60 station: -2 Consistency: soft Contractions Contraction Frequency(min): 3 Contraction Duration(sec): 60 Intensity: Moderate/Strong Fetus A Heart Rate Baseline: 140 Variability: Moderate (6-25 BPM) Accelerations: Present Assessment and Plan Assessment and plan (1) : Status: Chronic Assessment and plan: Labor induction. Patient is status post 2 doses of penicillin for group B strep prophylaxis. Will consider artificial rupture of membranes after her third dose if warranted. All questions answered. Expect vaginal delivery (2) Group B Streptococcus carrier, +RV culture, currently : Status: Acute Objective Abnormal lab results 09/14/23 Range/Units 08:02 RBC 3.61 L (3.93-5.22) 10^6/uL Hct 35.0 L (36.0-46.0) % MCV 97 H (80-95) fL Temp Pulse Resp BP Pulse Ox 98.1 F 80 18 111/71 98 09/14/23 15:35 09/14/23 15:35 09/14/23 15:35 09/14/23 15:35 09/14/23 07:27 Laboratory Results WBC 7.34 10^3/uL (4.4-10.8) 09/14/23 08:02 RBC 3.61 10^6/uL (3.93-5.22) L 09/14/23 08:02 Hgb 11.5 g/dL (11.2-15.7) 09/14/23 08:02 Hct 35.0 % (36.0-46.0) L 09/14/23 08:02 MCV 97 fL (80-95) H 09/14/23 08:02 MCH 31.9 pg (27.0-33.0) 09/14/23 08:02 MCHC 32.9 % (32.0-36.0) 09/14/23 08:02 RDW 13.3 % (11.7-14.6) 09/14/23 08:02 Plt Count 242 10^3/uL (130-400) 09/14/23 08:02 MPV 9.2 fL (8.0-11.0) 09/14/23 08:02 Patient ABO/Rh AB Positive 09/14/23 08:02 Antibody Screen NEGATIVE 09/14/23 08:02 Subjective Interval history since last seen: Patient seen and examined with regular contractions. More uncomfortable. Not currently on Pitocin augmentation. Cervical exam performed with some cervical change. Patient tolerating her labor. Results Hemoglobin/Hematocrit: Hgb 11.5 g/dL (11.2-15.7) 09/14/23 08:02 Hct 35.0 % (36.0-46.0) L 09/14/23 08:02 Abnormal Lab Findings: Abnormal Labs 09/14/23 08:02 RBC 3.61 L Hct 35.0 L MCV 97 H
--- NOTE | 2023-09-14 18:26 | W.PM.OBNL1 ---
Date of service: 09/14/23 Time of Service: 18:26 Informed Consent Informed Consent: Induction of Labor Pelvic Exam Dilation: 6 Effacement (%): 70 station: -1 Comments: Artificial rupture of membranes, copious clear fluid Contractions Contraction Frequency(min): 3 Fetus A Heart Rate Baseline: 140 Assessment and Plan Assessment and plan (1) : Status: Chronic Assessment and plan: Term , now in labor. Anticipate . Clear fluid after rupture of membranes. Good labor progression. Status post 3 doses of penicillin. (2) Group B Streptococcus carrier, +RV culture, currently : Status: Acute Objective Abnormal lab results 09/14/23 Range/Units 08:02 RBC 3.61 L (3.93-5.22) 10^6/uL Hct 35.0 L (36.0-46.0) % MCV 97 H (80-95) fL Temp Pulse Resp BP Pulse Ox 98.1 F 81 18 112/75 98 09/14/23 15:35 09/14/23 18:18 09/14/23 15:35 09/14/23 18:18 09/14/23 07:27 Laboratory Results WBC 7.34 10^3/uL (4.4-10.8) 09/14/23 08:02 RBC 3.61 10^6/uL (3.93-5.22) L 09/14/23 08:02 Hgb 11.5 g/dL (11.2-15.7) 09/14/23 08:02 Hct 35.0 % (36.0-46.0) L 09/14/23 08:02 MCV 97 fL (80-95) H 09/14/23 08:02 MCH 31.9 pg (27.0-33.0) 09/14/23 08:02 MCHC 32.9 % (32.0-36.0) 09/14/23 08:02 RDW 13.3 % (11.7-14.6) 09/14/23 08:02 Plt Count 242 10^3/uL (130-400) 09/14/23 08:02 MPV 9.2 fL (8.0-11.0) 09/14/23 08:02 Patient ABO/Rh AB Positive 09/14/23 08:02 Antibody Screen NEGATIVE 09/14/23 08:02 Subjective Interval history since last seen: Patient seen and examined this evening. More uncomfortable with contractions now regular every 2 to 3 minutes. Category 1 heart rate tracing. Results Hemoglobin/Hematocrit: Hgb 11.5 g/dL (11.2-15.7) 09/14/23 08:02 Hct 35.0 % (36.0-46.0) L 09/14/23 08:02 Abnormal Lab Findings: Abnormal Labs 09/14/23 08:02 RBC 3.61 L Hct 35.0 L MCV 97 H
[2023-09-14] MEDS: Oxytocin/Normal Saline 30 UNITS/500 ML BAG 95 UNITS IV (19:45)
--- NOTE | 2023-09-14 19:59 | OBVDS_ITS ---
Date of service: 09/14/23 Time of Service: 20:00 OB Labor/ Delivery Information Baby A Delivery Delivery Method: Spontaneaous Presentation: Cephalic Vertex Position: Right Occipital Anterior Cord Description-Baby A: 3 Vessels and Nuchal Cord (x 1, reduced) Amniotic Fluid: Clear Estimated Blood Loss: 150 Delivery Outcome: Liveborn Transferred: Remains with Mother Note: After labor induction with 1 dose of misoprostol and subsequent onset of labor, patient received 3 dose of penicillin G for group B strep prophylaxis. She had artificial rupture of membranes for clear fluid. She progressed to the point that she was completely dilated with good maternal effort, she pushed the vertex over intact perineum. There was evidence of nuchal cord x 1 that was easily reduced and the shoulders followed without difficulty. Three-vessel cord was noted clamped x 2 after delayed cord clamping and baby with skin to skin with mom. At this point cord blood sample was obtained. Placenta delivered spontaneously and was found to be intact. On inspection of the perineum there was no evidence of perineal or labial lacerations. There is no vaginal laceration and cervix is intact. Sharp and sponge counts were correct x 2 and mom and baby are stable after delivery qualitative blood loss was 150 mL. Strong maternal bonding was noted. Male infant Apgars 8 and 8 [place] Providers Doctor: Tova Nogueira Labor/Delivery Information Number of Babies in Womb: 1 Steroids Given: None Reason Steroids Not Administered: N/A Group Beta Strep: Positive Antibiotics Administered: Yes Number of Doses of Antibiotics: 3 Rubella Status: Immune Blood Type: AB+ Varicella Immunity: Immune Stages of Labor ROM Baby A: 09/14/23 ROM Baby A: 18:14 Baby A Gender: Male Gestational Status: Term (39-41.6 wks) Length-Baby A: 21.5 in
[2023-09-14] MEDS: Dibucaine 1% 28 GM TUBE TP (20:43)
[2023-09-14] MEDS: Hamamelis Leaf/Glycerin 100 EACH BOX PR (20:43)
[2023-09-14] MEDS: Ibuprofen 600 MG TAB PO (20:44)
[2023-09-14] MEDS: Acetaminophen 325 MG TAB 650 MG PO (20:44)
[2023-09-14] MEDS: Docusate Sodium 100 MG CAP PO (20:44)
[2023-09-15] MEDS: Acetaminophen 325 MG TAB 650 MG PO ×3 (01:28→13:45)
[2023-09-15 05:27] VITALS: BP 106/80; PULSE 91; RESP 16; TEMP 36.4
[2023-09-15 07:03] LABS: HCT 32.9 % (36.0-46.0); HGB 10.9 g/dL (11.2-15.7); MCH 31.7 pg (27.0-33.0); MCHC 33.1 % (32.0-36.0); MCV 96 fL (80-95); MPV 8.9 fL (8.0-11.0); Platelet Count 229 10^3/uL (130-400); RBC 3.44 10^6/uL (3.93-5.22); RDW 13.2 % (11.7-14.6); RDW-SD 46.3 fL
[2023-09-15 07:30] VITALS: BP 110/78; PULSE 97; TEMP 36.2
[2023-09-15] MEDS: Ibuprofen 600 MG TAB PO ×2 (07:30→13:46)
[2023-09-15] MEDS: Dibucaine 1% 28 GM TUBE TP (07:46)
--- NOTE | 2023-09-15 07:50 | W.PM.OBPNV1 ---
Date of service: 09/15/23 Time of Service: 07:50 Assessment and Plan Assessment and plan (1) Normal spontaneous vaginal delivery: Status: Acute Assessment and plan: Post day #1, Doing well. D/C home today Subjective Subjective Interval history: Patient seen, doing well. Breast feeding. Dsires D/C today Patient comments: No complaints baby status: Doing well, Nursing well, Rooming in and Strong Bonding Observed Exam Physical Exam Vital signs: Temp Pulse Resp BP Pulse Ox 97.6 F 91 H 16 106/80 98 09/15/23 05:27 09/15/23 05:27 09/15/23 05:27 09/15/23 05:27 09/14/23 07:27 Vital Signs Reviewed: Yes Constitutional Constitutional: no acute distress Respiratory Exam Respiratory Exam: Normal Cardiovascular Exam Cardiovascular Exam: Normal Abdominal Exam Comments: Soft, Non-tender Fundal Exam Fundus: Below Umbilicus and Firm Extremities Exam Extremity Exam: Normal; negative Calf Tenderness, Edema or Redness Skin Exam Skin Exam: Normal Neurological Exam Neurological Exam: Normal Psychiatric Exam Psychiatric Exam: Normal Results Hemoglobin/Hematocrit: Hgb 10.9 g/dL (11.2-15.7) L 09/15/23 06:56 Hct 32.9 % (36.0-46.0) L 09/15/23 06:56 Abnormal Lab Findings: Abnormal Labs 09/14/23 09/15/23 08:02 06:56 WBC 12.90 H RBC 3.61 L 3.44 L Hgb 10.9 L Hct 35.0 L 32.9 L MCV 97 H 96 H
--- NOTE | 2023-09-15 08:12 | DSE_ITS ---
Date of service: 09/15/23 Time of Service: 08:12 DS: Diagnosis Discharge Diagnosis (1) Normal spontaneous vaginal delivery: Status: Acute Asessment and Plan: D/C home. Follow up in 2 and 6 weeks Discharge Plan Disposition Patient Disposition: Home Condition: Good Discharge Details Reason For Visit: IOL Admit Date/Time: 09/14/23 07:03 Admit Provider: Tova Nogueira Attending Provider: Tova Nogueira [facility]: Patient was admitted for labor induction at term for labor induction. She received one dose of Cytotec. She proceeded to enter spontaneous labor, recieved 3 doses of PCN for GBS prophylaxis. She had artificial rupture of membranes and went on to a normal spontaneous vaginal delivery. She was discharged home post day #1. Home Meds and New Rx's Prescriptions: New ibuprofen [IBU] 800 mg tablet 800 mg PO Q8H PRNQty: 60 0RF docusate sodium [Colace] 100 mg capsule 100 mg PO BID Qty: 60 0RF Continued albuterol-budesonide 90-80 mcg/actuation HFA aerosol inhaler 2 inh inhalation ONCE Rx Instructions: as a single dose; may repeat up to 6 doses per day (12 inhalations) prenat.vits,jef,[id number] Tablet 1 tab PO DAILY Discharge Instructions Additional Instructions: Follow up in [facility] Forms: BC Instructions, BC Post Vaginal Deliver Activity:: Pelvic Rest Equipment/Supplies:: No Equipment Needed Diet:: As Tolerated Discharge Orders Discharge Orders: Discharge Order (Routine); Ordered 09/15/23 Ordered By: Tova Nogueira OB:DS Summary Summary Vaginal Delivery Method: Spontaneaous Episiotomy Description: None Laceration Description: None Laceration Extension: N/A Contraception Discussed Contraception Discussed: Yes, Infant Gender-Baby A: Male weight: 8 lb 13.096 oz Status at Discharge Functional status at discharge: independent ambulation Overall status at discharge: patient is progressing back to baseline Mental Status: mental status grossly normal Speech and Movement: speech and movement normal Mood: congruent mood Affect: normal affect Quality:SDOH Health Related Social Needs: No Data to Display Exam Physical Exam Vital signs: Temp Pulse Resp BP Pulse Ox 97.6 F 91 H 16 106/80 98 09/15/23 05:27 09/15/23 05:27 09/15/23 05:27 09/15/23 05:27 09/14/23 07:27 Narrative: See phusical exam dated 09/15/2023 [facility] All Active Problems Normal spontaneous vaginal delivery (Acute) Bhupinder male , Apgars 8 and 8. 09/14/2023 Group B Streptococcus carrier, +RV culture, currently (Acute) (Chronic) Medical History Migraine headache with aura Surgical History History of repair of anterior cruciate ligament of left knee (~2014) meniscus repair Family History Mother No problems noted. Father Diabetes Resolved after weight loss Brother No problems noted. Maternal Grandfather Hypertension Maternal Grandmother , 74 from pancreatic cancer Pancreatic cancer Paternal Grandfather Diabetes Alcohol use disorder Paternal Grandmother Dementia Son No problems noted. 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 [employer] Pets and animals: Yes Pets and animals: dog(s) Sexually active: Yes Do you think of yourself as: straight/heterosexual Current gender identity: female What is your relationship status?: How often do you talk on the phone with friends or family?: three or more times per week How often do you get together with friends or relatives?: once per week How often do you attend jewish or episcopalian services?: 1-3 times per year Do you belong to any clubs or organized social groups?: no Panel score (0-1 are the most socially isolated patients): 2 What type of physical activity do you participate in: walking Duration: 30-45 minutes/day Frequency: 1-2 times per week Litzy/Denominational: Yazdanism Special litzy needs: No Agree to transfusion: Yes Seatbelt use: always Helmet use: Yes Helmet use: always Drive intox or ride w/intox funeral limousine driver: No Working smoke detector in home: Yes Carbon monox detector in home: Yes Firearms in home: No Do you feel safe at home: Yes Do you feel safe in your relationship?: Yes Victim of physical abuse: No Victim of emotional abuse: No Victim of sexual abuse: No Would you like helpful sources: No History History 2 Para 1 Hx # Term Pregnancies 1 Multiple births 0 Hx # Pregnancies 0 Ectopic pregnancies 0 AB induced 0 Hx Number of Living Children 1 AB spontaneous 0 Past Pregnancies Del. Date GA/Weeks # Preg Succ Route Wgt Sex Labor Lgth Anesth esia Location Prov [facility] 02/21/22 40 No Yes vaginal 8 lb 8 oz Male 3-4hrs [facility] - Eduardo Delivery Date: 02/21/22 Last Updated by: Shana Clark MD [place] -precipitous delivery DS: Data Vitals/I&O Vitals and I&O: Vital Signs Temperature 97.6 F 09/15/23 05:27 Temperature Source Oral 09/15/23 05:27 Pulse 91 H 09/15/23 05:27 Pulse Rhythm Regular 09/14/23 19:00 Respiratory Rate 16 09/15/23 05:27 Respiratory Depth Normal 09/14/23 19:00 Blood Pressure 106/80 09/15/23 05:27 Blood Pressure Mean 88 09/15/23 05:27 Pulse Oximetry 98 09/14/23 07:27 Pain Level 4 09/15/23 07:30 Intake & Output 09/14/23 09/14/23 09/15/23 11:59 23:59 11:59 Intake Total 130 / 257.083 127.083 / 257.083 500 / 500 Output Total 300 / 600 300 / 600 300 / 300 Balance -170 / -342.917 -172.917 / -342.917 200 / 200 Weight 203 lb Intake: IV 130 / 257.083 127.083 / 257.083 500 / 500 Output: Urine 300 / 600 300 / 600 300 / 300 Other: Urine Color Yellow Yellow Data Completed and Pending Labs on day of discharge: Labs from last 24 hours 09/15/23 09/14/23 06:56 08:02 WBC 12.90 H 7.34 RBC 3.44 L 3.61 L Hgb 10.9 L 11.5 Hct 32.9 L 35.0 L MCV 96 H 97 H MCH 31.7 31.9 MCHC 33.1 32.9 RDW 13.2 13.3 Plt Count 229 242 MPV 8.9 9.2 Patient ABO/Rh AB Positive Antibody Screen NEGATIVE
[2023-09-15 16:04] VITALS: BP 107/72; PULSE 91; TEMP 36.5
== END 2023-09-15 20:50 | disposition home or self-care (01) | DRG 807 ==
PROVIDERS: Admitting Provider Obstetrics & Gynecology; PCP Nurse Practitioner Family; Visit Provider Obstetrics & Gynecology
DX: O99.824 Streptococcus B carrier state complicating childbirth (principal); Z37.0 Single live birth; Z3A.39 39 weeks gestation of pregnancy; O69.81X0 Labor and delivery complicated by cord around neck, without compression, not applicable or unspecified
CPT/HCPCS: 36415; 85027; 86850; 86900; 86901; J2540; J3490